=== PATIENT | female | born 2000 | race African-American/Black ===

== ENCOUNTER 2023-08-27 08:24 | Day surgery (SDC) | payer OTHER ==
[~2023-08-27] VITALS: Ht 175.3 cm; Wt 65.9 kg
[~2023-08-27 08:24] MED LIST: LR 1,000 ML IV SCH; Ondansetron 4 MG/2 ML VIAL IV PRN
[2023-08-27] MEDS ORDERED: Lidocaine PF 2% (20 MG/ML) 5 ML VIAL ONE (09:20)
[2023-08-27] MEDS ORDERED: Glycopyrrolate 0.2 MG/ML 1 ML VIAL ONE (09:20)
[2023-08-27 09:44] VITALS: BP 120/79; PULSE 81; TEMP 97.9
--- NOTE | 2023-08-27 09:47 | NUR ---
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
[2023-08-27] MEDS ORDERED: DOXYCYCLINE HY100 MG PO (09:49)
[2023-08-27] MEDS ORDERED: FLAGYL500 MG PO (09:50)
[2023-08-27] MEDS ORDERED: ZOFRAN ODT8 MG PO (09:50)
[2023-08-27] MEDS ORDERED: IBU800 M1 PO (09:51)
[2023-08-27] MEDS ORDERED: Ondansetron 4 MG/2 ML VIAL ONE ×2 (09:52)
[2023-08-27 10:30] VITALS: BP 125/67; PULSE 73; TEMP 97.1
[2023-08-27 10:45] VITALS: BP 114/76; PULSE 69
[2023-08-27 11:00] VITALS: BP 123/84; PULSE 69
[2023-08-27 11:15] VITALS: BP 115/79; PULSE 71
--- NOTE | 2023-08-27 11:35 | NUR ---
1030- PATIENT RETURNS TO [facility] [place] [facility] VIA CART. PT AWAKE AND ALERT. RESPIRATIONS UNLABORED. PT WAS VERY SLEEPY STILL, THE RECLINER WAS BROUGHT CLOSE TO BED AND SHE DID A STAND PIVOT TO THE RECLINER WITH A 2 ASSIST. PT DENIES NAUSEA OR ABDOMINAL PAIN. HOOKED UP TO MONITOR AND VS OBTAINED. CALL LIGHT AT SIDE. 1042- PATIENT TOLERATING JUICE AND MUFFIN WITHOUT NAUSEA OR DIFFICULTY SWALLOWING. 1106- D/C INSTRUCTIONS REVIEWED WITH PATIENT. PT VERBALIZED UNDERSTANDING AND A COPY OF INSTRUCTIONS PROVIDED IN D/C FOLDER. 1115- PATIENT DRESSES SELF. 1122- DR. AKERS IN ROOM SPEAKING WITH PATIENT. 1135- PATIENT DISCHARGED FROM UNIT VIA W/C TO A PERSONAL VEHICLE. PT LEFT HOSPITAL IN STABLE CONDITION.
== END 2023-08-27 11:35 | disposition home or self-care (01) ==
LOC: SDCO 08:24
DX: R10.13 Epigastric pain (principal); R10.9 Unspecified abdominal pain; R11.0 Nausea
CPT/HCPCS: J2405; J2704; J7120